=== PATIENT | female | born 1945 ===

== ENCOUNTER → 2018-11-03 | Outpatient (CLI) | payer OTHER | LOC: SUPIMAGING 16:11 | PROVIDERS: ATTEND Family Medicine | DX: M19.012 Primary osteoarthritis, left shoulder (principal); M19.011 Primary osteoarthritis, right shoulder; M46.92 Unspecified inflammatory spondylopathy, cervical region; I70.0 Atherosclerosis of aorta | CPT/HCPCS: 73030-PN ==